=== PATIENT | male | born 1985 | race Caucasian/White ===

== ENCOUNTER 2019-04-24 22:01 | Emergency (ER) | payer OTHER ==
[2019-04-24 22:21] VITALS: BP 143/75; PULSE 97; RESP 20; TEMP 99
[2019-04-25] MEDS ORDERED: IBUPROFEN 600 MG STARTER PACK 4 TAB BTL ONE (00:25)
[2019-04-25] MEDS ORDERED: CYCLOBENZAPRINE 10MG STARTER 3 TAB BTL ONE (00:25)
--- NOTE | 2019-04-25 06:31 | XR ---
EXAM: XR Lumbosacral Spine, 2 or 3 Views CLINICAL HISTORY: Rt sided back pain TECHNIQUE: Frontal and lateral views of the lumbar spine and sacrum. COMPARISON: None. FINDINGS: Vertebrae: Unremarkable. No acute fracture. Normal alignment. Sacrum/coccyx: Unremarkable as visualized. No acute fracture. Disc spaces: Mild multilevel intervertebral disc space loss is seen in the lumbar spine. Soft tissues: Unremarkable. IMPRESSION: 1. No acute osseous abnormality. 2. Mild degenerative change of the lumbar spine.
== END 2019-04-25 00:30 | disposition home or self-care (01) ==
LOC: EC 22:01
DX: S39.012A Strain of muscle, fascia and tendon of lower back, initial encounter (principal); M51.36 Other intervertebral disc degeneration, lumbar region; W10.9XXA Fall (on) (from) unspecified stairs and steps, initial encounter; Y93.01 Activity, walking, marching and hiking; Y92.69 Other specified industrial and construction area as the place of occurrence of the external cause; Y99.0 Civilian activity done for income or pay
CPT/HCPCS: 72110; 99283

== ENCOUNTER 2020-06-14 18:20 | Emergency (ER) | payer OTHER ==
--- NOTE | 2020-06-14 18:55 | ED ---
General Adult HPI - General Chief complaint: GI Bleed Stated complaint: blood in stool Time Seen by Provider: 06/14/20 18:40 Source: patient Mode of arrival: ambulatory Limitations: no limitations - History of Present Illness Initial comments: Dictation was produced using [employer] dictation software. please excuse any grammatical, word or spelling errors. This patient was cared for during a federal and state declared state of emergency secondary to Covid 19 Chief Complaint: 34-year-old male presents with GI bleed dyspnea History of Present Illness: 34-year-old obese male. 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 Patient states that the last couple days he has been having diarrhea. Today he had a bloody all movement. Patient states it was bright blood per rectum. He has no rectal pain or abdominal pain. Patient also has some exertional dyspnea. He denies any chest pain. Patient states that he went to the walk-in clinic and had cold testing is found to be negative. Patient states that some of his farm animals have been a little sickly. Patient denies any recent travel. Patient denies any leg symptoms. No history of PEs. The ROS documented in this emergency department record has been reviewed and confirmed by me. Those systems with pertinent positive or negative responses have been documented in the HPI. All other systems are other negative and/or noncontributory. PHYSICAL EXAM: General Impression: Alert and oriented x3, not in acute distress HEENT: Normocephalic atraumatic, extra-ocular movements intact, pupils equal and reactive to light bilaterally, mucous membranes moist. Cardiovascular: Heart regular rate and rhythm Chest: Able to complete full sentences, no retractions, no tachypnea Abdomen: abdomen soft, non-tender, non-distended, no organomegaly Musculoskeletal: Pulses present and equal in all extremities, no peripheral edema Motor: no focal deficits noted Neurological: CN II-XII grossly intact, no focal motor or sensory deficits noted Skin: Intact with no visualized rashes Psych: Normal affect and mood Total exam: Bright blood around the anus, no hemorrhoids or fissures noted ED course: 34-year-old male presents with diarrhea, bright blood per rectum and dyspnea vital signs upon arrival shows heart rate of 104, rest of vital signs within acceptable limits. Given that patient has exposure to farm animals is concern of infectious colitis secondary to occupational exposure. EKG interpretation: Ventricular rate 94, normal sinus rhythm,. Interval 122, QRS 84, QTC 472. No NE prolongation, no QTC prolongation, no ST or T-wave changes noted. Overall, this EKG is unremarkable Laboratory evaluation obtained. CBC, coag panel is unremarkable. D-dimer is negative. Metabolic panel. Still, but is positive. Chest x-ray is nonacute. Patient observed in the emergency department for approximately 3 hours in stable medical condition. Pending so-called for concerns of infectious diarrhea. Patient given prescription for Levaquin to treat possible infectious diarrhea. Patient advised follow-up with his primary care physician. - Related Data Home Medications Medication Instructions Recorded Confirmed Atorvastatin Calcium [Lipitor] 10 mg PO DAILY 06/14/20 06/14/20 Bismuth Subsalicylate 524 mg PO Q1H PRN 06/14/20 06/14/20 [Pepto-Bismol] Ergocalciferol [Vitamin D2 50,000 unit PO TU 06/14/20 06/14/20 (DRISDOL)] Exenatide Microspheres [Bydureon 2 mg SQ LEWIS 06/14/20 06/14/20 Pen] Insulin Detemir (Levemir) [Levemir] 28 unit SQ BID 06/14/20 06/14/20 lisinopriL [Zestril] 5 mg PO DAILY 06/14/20 06/14/20 metFORMIN HCL 1,000 mg PO BID 06/14/20 06/14/20 Previous Rx's Medication Instructions Recorded Ciprofloxacin HCl [Cipro] 500 mg PO BID 5 Days #10 tab 06/14/20 Allergies Allergy/AdvReac Type Severity Reaction Status Date / Time No Known Allergies Allergy Verified 06/14/20 18:29 Review of Systems ROS Statement: Those systems with pertinent positive or pertinent negative responses have been documented in the HPI. ROS Other: All systems not noted in ROS Statement are negative. Past Medical History Past Medical History: No Reported History Additional Past Medical History / Comment(s): colitis History of Any Multi-Drug Resistant Organisms: None Reported Past Surgical History: No Surgical Hx Reported Past Psychological History: No Psychological Hx Reported Smoking Status: Never smoker Past Alcohol Use History: None Reported Past Drug Use History: None Reported General Exam Limitations: no limitations Course Vital Signs 06/14/20 18:28 Temperature 98.9 F Pulse Rate 104 H Respiratory 20 Rate Blood Pressure 136/71 O2 Sat by Pulse 96 Oximetry Medical Decision Making - Lab Data Result diagrams: 06/14/20 19:24 06/14/20 19:24 Lab Results 06/14/20 06/14/20 06/14/20 Range/Units 19:24 19:24 19:24 WBC 11.3 H (3.8-10.6) k/uL RBC 4.35 (4.30-5.90) m/uL Hgb 12.5 L (13.0-17.5) gm/dL Hct 36.6 L (39.0-53.0) % MCV 84.1 (80.0-100.0) fL MCH 28.6 (25.0-35.0) pg MCHC 34.1 (31.0-37.0) g/dL RDW 16.0 H (11.5-15.5) % Plt Count 300 (150-450) k/uL MPV 7.1 Neutrophils % 75 % Lymphocytes % 17 % Monocytes % 5 % Eosinophils % 2 % Basophils % 0 % Neutrophils # 8.5 H (1.3-7.7) k/uL Lymphocytes # 1.9 (1.0-4.8) k/uL Monocytes # 0.6 (0-1.0) k/uL Eosinophils # 0.2 (0-0.7) k/uL Basophils # 0.0 (0-0.2) k/uL Poikilocytosis Slight Anisocytosis Slight PT 10.0 (9.0-12.0) sec INR 0.9 (<1.2) APTT 19.9 L (22.0-30.0) sec D-Dimer 0.30 (<0.60) mg/L FEU Sodium 139 (137-145) mmol/L Potassium 4.3 (3.5-5.1) mmol/L Chloride 101 (98-107) mmol/L Carbon Dioxide 30 (22-30) mmol/L Anion Gap 8 mmol/L BUN 14 (9-20) mg/dL Creatinine 0.74 (0.66-1.25) mg/dL Est GFR (CKD-EPI)AfAm >90 (>60 ml/min/1.73 sqM) Est GFR (CKD-EPI)NonAf >90 (>60 ml/min/1.73 sqM) Glucose 193 H (74-99) mg/dL Calcium 9.7 (8.4-10.2) mg/dL Troponin I (0.000-0.034) ng/mL NT-Pro-B Natriuret Pep pg/mL Stool Occult Blood (Negative) 06/14/20 06/14/20 06/14/20 Range/Units 19:24 19:24 19:47 WBC (3.8-10.6) k/uL RBC (4.30-5.90) m/uL Hgb (13.0-17.5) gm/dL Hct (39.0-53.0) % MCV (80.0-100.0) fL MCH (25.0-35.0) pg MCHC (31.0-37.0) g/dL RDW (11.5-15.5) % Plt Count (150-450) k/uL MPV Neutrophils % % Lymphocytes % % Monocytes % % Eosinophils % % Basophils % % Neutrophils # (1.3-7.7) k/uL Lymphocytes # (1.0-4.8) k/uL Monocytes # (0-1.0) k/uL Eosinophils # (0-0.7) k/uL Basophils # (0-0.2) k/uL Poikilocytosis Anisocytosis PT (9.0-12.0) sec INR (<1.2) APTT (22.0-30.0) sec D-Dimer (<0.60) mg/L FEU Sodium (137-145) mmol/L Potassium (3.5-5.1) mmol/L Chloride (98-107) mmol/L Carbon Dioxide (22-30) mmol/L Anion Gap mmol/L BUN (9-20) mg/dL Creatinine (0.66-1.25) mg/dL Est GFR (CKD-EPI)AfAm (>60 ml/min/1.73 sqM) Est GFR (CKD-EPI)NonAf (>60 ml/min/1.73 sqM) Glucose (74-99) mg/dL Calcium (8.4-10.2) mg/dL Troponin I <0.012 (0.000-0.034) ng/mL NT-Pro-B Natriuret Pep 152 pg/mL Stool Occult Blood Positive (Negative) Disposition Clinical Impression: Diarrhea, Dyspnea Disposition: HOME SELF-CARE Condition: Good Instructions (If sedation given, give patient instructions): Gastrointestinal Bleeding (ED) Additional Instructions: 1. Pending stool culture results, 2. Follow-up with a primary care physician, 3. Follow up with GI doctor for colonoscopy Prescriptions: Ciprofloxacin HCl [Cipro] 500 mg PO BID 5 Days #10 tab Is patient prescribed a controlled substance at d/c from ED?: No Referrals: John Tanner MD [STAFF PHYSICIAN] - 1-2 days Nonstaff,Physician [Primary Care Provider] - 1-2 days Time of Disposition: 21:16
[2020-06-14 19:34] LABS: Chloride 101 mmol/L (98-107)
[2020-06-14 19:36] LABS: Potassium 4.3 mmol/L (3.5-5.1)
[2020-06-14 19:37] LABS: African American GFR (CKD) >90 (>60 ml/min/1.73 sqM); Anion Gap 8 mmol/L; Blood Urea Nitrogen 14 mg/dL (9-20); Calcium 9.7 mg/dL (8.4-10.2); Carbon Dioxide 30 mmol/L (22-30); Glucose 193 mg/dL (74-99); Non-African American GFR(CKD) >90 (>60 ml/min/1.73 sqM); Sodium 139 mmol/L (137-145)
[2020-06-14 19:40] LABS: Anisocytosis Slight; Basophils % (A) 0 %; Eosinophils # (A) 0.2 k/uL (0-0.7); Eosinophils % (A) 2 %; HCT 36.6 % (39.0-53.0); HGB 12.5 gm/dL (13.0-17.5); Lymphocytes # (A) 1.9 k/uL (1.0-4.8); Lymphocytes % (A) 17 %; MCH 28.6 pg (25.0-35.0); MCHC 34.1 g/dL (31.0-37.0); MCV 84.1 fL (80.0-100.0); Mean Platelet Volume 7.1; Monocytes # (A) 0.6 k/uL (0-1.0); Monocytes % (A) 5 %; Neutrophils # (A) 8.5 k/uL (1.3-7.7); Neutrophils % (A) 75 %; Platelet Count 300 k/uL (150-450); Poikilocytosis Slight; RBC 4.35 m/uL (4.30-5.90); WBC 11.3 k/uL (3.8-10.6)
--- NOTE | 2020-06-14 19:49 | XR ---
EXAMINATION TYPE: XR chest 2V DATE OF EXAM: 06/14/2020 COMPARISON: NONE HISTORY: Shortness of breath. TECHNIQUE: Frontal and lateral views of the chest are obtained. FINDINGS: There is no focal air space opacity, pleural effusion, or pneumothorax seen. The cardiac silhouette size is enlarged. The osseous structures are intact. IMPRESSION: No acute cardiopulmonary process.
[2020-06-14 19:55] LABS: D-Dimer 0.3 mg/L FEU (<0.60); INR 0.9 (<1.2)
[2020-06-14 20:00] LABS: Partial Thromboplastin Time 19.9 sec (22.0-30.0)
[2020-06-14 21:27] VITALS: BP 162/82; PULSE 92; RESP 16; TEMP 98.3
== END 2020-06-14 21:26 | disposition home or self-care (01) ==
LOC: EC 18:20
DX: R19.7 Diarrhea, unspecified (principal); K92.1 Melena; R06.09 Other forms of dyspnea
CPT/HCPCS: 36415; 71046; 80048; 82272; 83880; 84484; 85025; 85379; 85610; 85730; 87045; 87046; 93005; 99285

== ENCOUNTER 2020-08-13 08:08 | Day surgery (SDC) | payer OTHER ==
[2020-07-19 10:20] VITALS: BMI 56.7
[~2020-08-13 08:08] MED LIST: LACTATED RINGERS 1,000 ML IV SCH; LIDOCAINE 1% (10MG/ML) FOR IV START INTRADERMA PRN
[2020-08-13 08:47] LABS: Glucose,Whole Blood 198 mg/dL (75-99)
[2020-08-13 08:51] VITALS: RESP 16; TEMP 97.5
[2020-08-13] MEDS ORDERED: PROPOFOL 10 MG/ML 20 ML VIAL IV ONE (09:03)
--- NOTE | 2020-08-13 09:32 | P.PCN ---
Date of Procedure: 08/13/20 Description of Procedure: BRIEF HISTORY: Patient is a 34-year-old male presenting for outpatient colonoscopy for evaluation of blood in stool/hemorrhage of the anus and rectum. He reports losing the hospital with complaints of blood and rectum. Denies any family history of colon cancer or IBD. No prior colonoscopy. PROCEDURE PERFORMED: Colonoscopy with polypectomy. PREOPERATIVE DIAGNOSIS: Blood in stool, hemorrhage of the anus and rectum, no prior colonoscopy. ESTIMATED BLOOD LOSS: Minimal. IV sedation per Anesthesia. PROCEDURE: After informed consent was obtained, the patient, was brought into the endoscopy unit. IV sedation was administered by Anesthesia under continuous monitoring. Digital rectal examination was normal. Initially the Olympus CF-190 flexible video colonoscope was then inserted in the rectum, gradually advanced into the cecum without any difficulty. Careful examination was performed as the scope was gradually being withdrawn. Ileocecal valve and the appendiceal orifice were visualized and appeared normal. Prep was excellent. Mucosa of the cecum, ascending colon, transverse colon, descending colon, sigmoid colon, and rectum appeared normal. Diminutive rectal polyp removed with cold forcep polypectomy measuring 1 mm in size. Retroflexion was performed in the rectum and no lesions were seen, low-grade internal hemorrhoids seen. The patient tolerated the procedure well. IMPRESSION: Diminutive rectal polyp removed with cold forcep polypectomy. Low-grade internal hemorrhoids. Otherwise normal appearing colon from rectum to cecum and normal appearing terminal ileum. RECOMMENDATIONS: Findings of this examination were discussed with the patient and his family. Okay to resume diet. Okay to resume medications. Await pathology from polypectomy. Recommend repeat colonoscopy in 7 years pending pathology from polypectomy.
[2020-08-13 10:07] VITALS: BP 140/67; PULSE 74
== END 2020-08-13 10:18 | disposition home or self-care (01) ==
LOC: ORWHC2ENDO 08:08
PROVIDERS: ATTEND Internal Medicine
DX: K92.1 Melena (principal); K62.1 Rectal polyp; K64.8 Other hemorrhoids; Z79.899 Other long term (current) drug therapy
CPT/HCPCS: 88305; 45380; J2704